=== PATIENT | male | born 1980 | race Caucasian/White ===

== ENCOUNTER 2018-09-02 13:44 | Inpatient (IN) | payer MEDICAID, OTHER ==
[~2018-09-02] VITALS: Ht 170.2 cm; Wt 135.6 kg
--- NOTE | 2018-09-02 13:56 | NUR ---
PT AMBULATES TO BED 5
[2018-09-02 14:04] VITALS: BP 167/100
--- NOTE | 2018-09-02 14:16 | NUR ---
38/M BIB C/O LEFT CHEST PAIN SINCE LAST NIGHT. PT STATES HE HAS PRESSURE PAIN ON CHEST SOB AND COUGH. PMH: COPD, ASTHMA. RX: VENTALIN, STILOTO RESPIMAT . PATIENT STATES PAIN OF 06/02 AT THIS TIME. PATIENT POSITIONED FOR COMFORT; HOB ELEVATED; BEDRAILS UP X2; BED DOWN. ER MADE AWARE OF PT STATUS. Addendum: 09/02/18 at 1802 by [email or web address] HX : COPD MED: VENTOLIN, STIOLTO RESPIMAT
--- NOTE | 2018-09-02 14:59 | NUR ---
X RAY AT BEDSIDE.
[2018-09-02] MEDS ORDERED: ACETAMINOPHEN 325 MG TAB PO ONE (15:05)
[2018-09-02 15:59] LABS: PROTHROMBIN TIME 10.2 secs (10.8-13.4)
[2018-09-02] MEDS ORDERED: NACL 0.9% 1,000 ML IV ONE (16:10)
[2018-09-02] MEDS ORDERED: ALBUTEROL SULFATE/IPRATROPIU 3 ML SOL IH ONE (16:10)
--- NOTE | 2018-09-02 16:20 | NUR ---
RT AT BEDSIDE FOR BREATHING TREATMENT
[2018-09-02 16:53] LABS: BASOPHILS % (AUTO) 0.3 % (0.0-2.0); EOSINOPHILS # (AUTO) 0.2 K/uL (0-0.4); EOSINOPHILS % (AUTO) 2.2 % (0.0-4.0); HEMATOCRIT 48.8 % (36-52); HEMOGLOBIN 15.3 g/dL (12.0-18.0); LYMPHOCYTES # (AUTO) 0.9 K/uL (2.0-11.5); LYMPHOCYTES % (AUTO) 10.3 % (20.5-51.1); MEAN CORPUSCULAR HEMOGLOBIN 27 pg (27-31); MEAN CORPUSCULAR HGB CONC 31 g/dL (33-37); MONOCYTES # (AUTO) 1.1 K/uL (0.8-1.0); MONOCYTES % (AUTO) 12.4 % (1.7-9.3); NEUTROPHILS # (AUTO) 6.9 K/uL (1.8-7.7); NEUTROPHILS % (AUTO) 74.8 % (42.2-75.2); PLATELET COUNT (AUTO) 208 K/uL (140-450); RED BLOOD CELL COUNT(AUTO) 5.74 MIL/uL (4.20-6.10); RED CELL DISTRIBUTION WIDTH 15.3 % (11.6-13.7); WHITE BLOOD COUNT (AUTO) 9.2 K/uL (4.8-10.8)
[2018-09-02 16:54] LABS: ANION GAP 9.4 (8-16); CREATININE 0.9 mg/dL (0.7-1.3); POTASSIUM 4.4 mmol/L (3.5-5.1)
[2018-09-02 17:00] LABS: ALBUMIN 3.5 g/dL (3.4-5.0); TOTAL BILIRUBIN 0.4 mg/dL (0.0-1.0)
[2018-09-02] MEDS ORDERED: MORPHINE SULFATE 4 MG/ML SYR IVP ONE (17:10)
[2018-09-02] MEDS ORDERED: ASPIRIN 325 MG TAB PO ONE (17:30)
[2018-09-02] MEDS: methylPREDNISolone SS 125 MG/2 ML VIAL IVP ONE ×2 (17:42→17:47)
[2018-09-02] MEDS ORDERED: DOCUSATE SODIUM 100 MG GELCAP PO PRN (17:50)
[2018-09-02] MEDS ORDERED: ONDANSETRON 4 MG/2 ML VIAL IM/IVP PRN (17:50)
[2018-09-02] MEDS ORDERED: ACETAMINOPHEN 325 MG TAB PO PRN (17:50)
[2018-09-02] MEDS ORDERED: ALBUTEROL SULFATE/IPRATROPIU 3 ML SOL IH PRN (17:55)
[2018-09-02] MEDS ORDERED: ALBU0.0912 IH (18:20)
[2018-09-02] MEDS ORDERED: TIOT4MIS2 IH (18:22)
--- NOTE | 2018-09-02 18:34 | NUR ---
Patient will be admitted to care of DR TORRES. Admited to TELE. Will go to room 119A. Belongings list completed. Report to ASHLEY RUTH.
--- NOTE | 2018-09-02 18:35 | NUR ---
PT TAKEN TO TELE FLOOR BY FLORY JEWELL AND EMT BIRD
[2018-09-02 18:44] LABS: MAGNESIUM 1.8 mg/dL (1.8-2.4); PHOSPHORUS 2.3 mg/dL (2.5-4.9); THYROID STIMULATING HORMONE 0.98 uIU/mL (0.34-3.74)
--- NOTE | 2018-09-02 19:00 | NUR ---
RECEIVED REPORT FROM DAY SHIFT NURSE ASHLEY-RN AT BEDSIDE. PT RESTING IN BED, AOX4, ON 2L/NC, WITH LEFT HAND #[id number]. DISCUSSED PLAN OF CARE AND PT VERBALIZED UNDERSTANDING. MRSA SWAB COLLECTED AND URINE COLLECTED. NO S/S OF RESPIRATORY DISTRESS OR DISCOMFORT NOTED AT THIS TIME. BED IN LOWEST POSITION, BED BREAKS ON, BOTH SIDE RAILS UP. BEDSIDE TABLE AND CALL LIGHT ARE WITHIN REACH. WILL CONTINUE TO MONITOR.
[2018-09-02 20:00] VITALS: BP_SYST 141; BP_SYST 147; BP_DIAS 87; BP_DIAS 91
[2018-09-02] MEDS ORDERED: guaiFENesin DM 200/20 MG-10 ML 10 ML UDC PO PRN ×2 (20:00→20:30)
--- NOTE | 2018-09-02 20:00 | NUR ---
VITAL SIGNS TAKEN AND TOLERATED WELL. NO S/S OF RESPIRATORY DISTRESS OR DISCOMFORT NOTED AT THIS TIME. WILL CONTINUE TO MONITOR.
[2018-09-02] MEDS: guaiFENesin DM 200/20 MG-10 ML 10 ML UDC PO SCH ×2 (20:59→21:00)
--- NOTE | 2018-09-02 20:59 | NUR ---
PT C/O COUGH WANTING MEDICINE. SPOKE WITH DR. POPE AND HE PLACED ORDER FOR ROBITUSSIN. MEDICINE WAS ADMINISTERED AND TOLERATED WELL. NO S/S OF RESPIRATORY DISTRESS OR DISCOMFORT NOTED AT THIS TIME. WILL CONTINUE TO MONITOR.
--- NOTE | 2018-09-02 21:00 | NUR ---
SPOKE WITH DR. POPE ABOUT SECOND SCHEDULED DOSE OF ROBITUSSIN SCHEDULED 30 MINUTES AFTER FIRST DOSE. DR. POPE INSTRUCTED NOT TO GIVE SCHEDULED DOSE FOR 2100.
[2018-09-02] MEDS ORDERED: SODIUM PHOS / POTASSIUM PHOS 1 PKT PDR PO SCH (21:15)
[2018-09-02] MEDS ORDERED: LISINOPRIL 10 MG TAB ONE (21:58)
[2018-09-02] MEDS: NACL 0.9% 1,000 ML IV SCH (21:58)
[2018-09-02] MEDS: LISINOPRIL 5 MG TAB PO SCH (22:03)
--- NOTE | 2018-09-02 22:03 | NUR ---
SCHEDULED MEDICATION GIVEN. ZESTRIL 10MG WAS TAKEN OUT OF [facility]IXIS BY OVERRIDE BECAUSE I WAS UNABLE TO TAKE OUT SCHEDULED 5MG. SPOKE WITH CHARGE NURSE TERRY AND WAS TOLD TO CALL PHARMACY. PHARMACY SAID THEY ALSO HAD THIS PROBLEM EARLIER AND TRIED TO FIX PROBLEM HOWEVER PROBLEM PERSISTS. ALTHOUGH 10MG WAS TAKEN OUT OF PIXIS VIA OVERRIDE, ONLY 5MG WAS GIVEN. CHARGE NURSE TERRY AWARE. NEUTRA-PHOS WAS GIVEN FOR LOW PHOSPHORUS 2.3 LEVELS. IVF STARTED AND TOLERATED WELL. NO S/S OF RESPIRATORY DISTRESS OR DISCOMFORT NOTED AT THIS TIME. WILL CONTINUE TO MONITOR.
[2018-09-02 23:59] LABS: BARBITURATE, URINE NEGATIVE ng/ml (NEG <=200); BENZODIAZEPINE, URINE NEGATIVE ng/mL (NEG <=200); CANNABINOID, URINE NEGATIVE ng/mL (NEG <=50); COCAINE, URINE NEGATIVE ng/mL (NEG <=300); OPIATE, URINE NEGATIVE ng/mL (NEG <=2000); PHENCYCLIDINE SCREEN,URINE NEGATIVE ng/mL (NEG <=25)
[2018-09-03] VITALS: BP 151/98
--- NOTE | 2018-09-03 | NUR ---
VITAL SIGNS TAKEN AND TOLERATED WELL. NO S/S OF RESPIRATORY DISTRESS OR DISCOMFORT NOTED AT THIS TIME. WILL CONTINUE TO MONITOR.
[2018-09-03 01:03] LABS: APPEARANCE,URINE SL CLOUDY (CLEAR); BILIRUBIN,URINE NEGATIVE (NEGATIVE); BLOOD, URINE NEGATIVE (NEGATIVE); COLOR,URINE YELLOW (YELLOW); LEUKOCYTE ESTERASE ,URINE NEGATIVE (NEGATIVE); NITRITE, URINE NEGATIVE (NEGATIVE); UGLUCOSE 1+ (NEGATIVE)
[2018-09-03 01:04] LABS: RBC,URINE NONE SEEN /HPF (0-5); WBC,URINE NONE SEEN /HPF (0-5)
--- NOTE | 2018-09-03 02:00 | NUR ---
PT CONTINUES TO REST IN BED. NO S/S OF RESPIRATORY DISTRESS OR DISCOMFORT NOTED AT THIS TIME. WILL CONTINUE TO MONITOR.
[2018-09-03] MEDS ORDERED: PNEUMOCOCCAL VACCINE 23 MCG/0.5 ML VIAL IMVAC SCH (03:20)
[2018-09-03 04:00] VITALS: BP 145/92
--- NOTE | 2018-09-03 04:00 | NUR ---
VITAL SIGNS TAKEN AND TOLERATED WELL. NO S/S OF RESPIRATORY DISTRESS OR DISCOMFORT NOTED AT THIS TIME. WILL CONTINUE TO MONITOR.
--- NOTE | 2018-09-03 06:00 | NUR ---
PT CONTINUES TO SLEEP IN BED. NO S/S OF RESPIRATORY DISTRESS OR DISCOMFORT NOTED AT THIS TIME. WILL CONTINUE TO MONITOR.
--- NOTE | 2018-09-03 07:19 | NUR ---
ENDORSED PT CARE TO DAY SHIFT NURSE AMINATA AND ORVILLE Lynch RN FOR CONTINUITY OF CARE.
--- NOTE | 2018-09-03 07:20 | NUR ---
REPORT RECIEVED FROM INDUSTRIAL TECHNOLOGY EDUCATION TEACHER NURSE, PT AWAKE ALERT, RESP EVEN SLIGHTLY LABORED WITH EXCEPTION, REPOSITIONED HIMSELF FOR COMFORT, PLAN OF CARE REVIEWED, ALL SAFETY MEASURES IN PLACE, WILL CONTINUE TO MONITOR.
[2018-09-03 08:00] VITALS: BP 123/76
[2018-09-03] MEDS: guaiFENesin DM 200/20 MG-10 ML 10 ML UDC PO SCH ×2 (08:39→17:39)
[2018-09-03] MEDS: methylPREDNISolone SS 40 MG/ML VIAL IVP SCH (08:39)
--- NOTE | 2018-09-03 08:42 | NUR ---
PATIENT HAS BEEN SCREENED AND CATEGORIZED HIGH NUTRITION RISK. PATIENT WILL BE SEEN WITHIN 1-2 DAYS OF ADMISSION. 09/03/18-09/04/[address]
--- NOTE | 2018-09-03 08:46 | NUR ---
AM MEDS GIVEN PT CONY WELL, PT WITH FREQ COUGHS, PT REQUESTS COUGH MED, MEDICATED AT THIS TIME.
[2018-09-03] MEDS ORDERED: LISINOPRIL 5 MG TAB PO SCH (09:00)
[2018-09-03] MEDS ORDERED: methylPREDNISolone SS 125 MG/2 ML VIAL IVP SCH (09:00)
[2018-09-03] MEDS: LISINOPRIL 5 MG TAB PO SCH (09:00)
[2018-09-03] MEDS ORDERED: METOPROLOL 25 MG TAB PO SCH (09:00)
[2018-09-03] MEDS ORDERED: ECOTRIN 81 MG TABEC PO SCH (09:00)
[2018-09-03] MEDS ORDERED: ATORVASTATIN 20 MG TAB PO SCH (09:00)
[2018-09-03 12:00] VITALS: BP 133/95
--- NOTE | 2018-09-03 12:22 | NUR ---
CALLED DR RALEIGH URIOSTEGUI [phone] PER [address] TRISHA JERRY MD OUT OF AREA CONVEYED TO DR MONZON THAT CARDIOPULMONARY DOES NOT CONDUCT PATIENT WALKS FOR HOME OXYGEN DUE TO NON POLICY AND PROCEDURE CURRENT ORDER TO CARDIOPULMONARY NEEDS TO CANCELLED AND REDIRECTED TO PHYSICAL THERAPY
--- NOTE | 2018-09-03 12:36 | NUR ---
PT COMPLAINED OF 6/10 HEADACHE. ADMINISTERED PRN TYLENOL PER MD ORDER. PT TOLERATED WELL. AT THE BEDSIDE. WILL CONTINUE TO MONITOR.
[2018-09-03] MEDS: NACL 0.9% 1,000 ML IV SCH (13:01)
--- NOTE | 2018-09-03 14:50 | NUR ---
ULTRASOUND AND AT THE BEDSIDE. PICKER PACKER BATTERIES CHANGED. PT AWAKE, ALERT, AND STABLE. WILL CONTINUE TO MONITOR.
--- NOTE | 2018-09-03 14:57 | NUR ---
09/03/18 RD INITIAL ASSESSMENT COMPLETED PLEASE REFER TO NUTRITION ASSESSMENT UNDER CARE ACTIVITY FOR ESTIMATED NUTRITIONAL NEEDS. 1. CONTINUE CARDIAC DIET TOLERATED 2. RD PROVIDED NUTRITION EDUCATION ON A HEART HEALTHY DIET AND LABEL READING 3. RD TO FOLLOW-UP 3-5 DAYS, MODERATE RISK DAT ELLIS, RD
[2018-09-03 16:00] VITALS: BP 127/95
--- NOTE | 2018-09-03 17:39 | NUR ---
ADMINISTERED SCHEDULED MEDICATION. PT TOLERATED WELL. AT THE BEDSIDE.
--- NOTE | 2018-09-03 19:22 | NUR ---
REPORT GIVEN TO PURCHASING MANAGER NURSE, PT IN STABLE CONDITION
--- NOTE | 2018-09-03 19:23 | NUR ---
RECEIVED REPORT FROM DAY SHIFT NURSE AMINATA AND CHERN AT BEDSIDE. PT RESTING IN BED, AOX4, ON 2L/NC, WITH LEFT HAND #[id number]. DISCUSSED PLAN OF CARE AND PT VERBALIZED UNDERSTANDING. NO S/S OF RESPIRATORY DISTRESS OR DISCOMFORT NOTED AT THIS TIME. BED IN LOWEST POSITION, BED BREAKS ON, BOTH SIDE RAILS UP. BEDSIDE TABLE AND CALL LIGHT ARE WITHIN REACH. WILL CONTINUE TO MONITOR.
[2018-09-03 20:00] VITALS: BP 133/72
--- NOTE | 2018-09-03 20:00 | NUR ---
VITAL SIGNS TAKEN AND TOLERATED WELL. NO S/S OF RESPIRATORY DISTRESS OR DISCOMFORT NOTED AT THIS TIME. PT REQUESTED TO NOT HAVE BIPAP TONIGHT. WILL CALL RT. WILL CONTINUE TO MONITOR.
--- NOTE | 2018-09-03 22:00 | NUR ---
PT CONTINUES TO REST IN BED. NO S/S OF RESPIRATORY DISTRESS OR DISCOMFORT NOTED AT THIS TIME. WILL CONTINUE TO MONITOR.
[2018-09-04] VITALS: BP 123/78
--- NOTE | 2018-09-04 | NUR ---
VITAL SIGNS TAKEN AND TOLERATED WELL. NO S/S OF RESPIRATORY DISTRESS OR DISCOMFORT NOTED AT THIS TIME. WILL CONTINUE TO MONITOR.
[2018-09-04] MEDS: guaiFENesin DM 200/20 MG-10 ML 10 ML UDC PO SCH ×3 (00:17→12:17)
--- NOTE | 2018-09-04 00:17 | NUR ---
SCHEDULED MEDICATION ROBITUSSIN GIVEN AND TOLERATED WELL. PT ALSO REQUESTING BIPAP MACHINE. NO S/S OF RESPIRATORY DISTRESS OR DISCOMFORT NOTED AT THIS TIME. WILL CONTINUE TO MONITOR.
--- NOTE | 2018-09-04 00:33 | NUR ---
PT REUSED TO WEAR BIPAP- UNCOMFORTABLE. EXPLAINED CPAP MODE AND PT NOW FINDS IT MORE COMFORTABLE. CPAP 5, 32%. SAO2 98%. NO SOB OR DISTRESS.
--- NOTE | 2018-09-04 01:39 | NUR ---
PT ON CPAP MODE. INCREASED PRESSURE TO 7. PT HAS PERIODS OF APNEA
--- NOTE | 2018-09-04 02:00 | NUR ---
PT SLEEPING IN BED. NO S/S OF RESPIRATORY DISTRESS OR DISCOMFORT NOTED AT THIS TIME. WILL CONTINUE TO MONITOR.
[2018-09-04 04:00] VITALS: BP 151/101
--- NOTE | 2018-09-04 04:00 | NUR ---
PT RESTING IN BED. PT TOOK OFF BIPAP. NO S/S OF RESPIRATORY DISTRESS OR DISCOMFORT NOTED AT THIS TIME. WILL CONTINUE TO MONITOR.
--- NOTE | 2018-09-04 05:40 | NUR ---
SCHEDULED MEDICATION GIVEN AND TOLERATED WELL. NO S/S OF RESPIRATORY DISTRESS OR DISCOMFORT NOTED AT THIS TIME. WILL CONTINUE TO MONITOR.
[2018-09-04] MEDS: NACL 0.9% 1,000 ML IV SCH (05:44)
--- NOTE | 2018-09-04 07:23 | NUR ---
RECEIVED BEDSIDE REPORT FROM FLORY COELLO. PT STABLE, SLEEPING COMFORTABLY WITHOUT BIPAP BUT EASILY AROUSABLE. NO SIGNS OF DISTRESS NOTED. SAFETY MEASURES IN PLACE. PLAN OF CARE REVIEWED. WILL CONTINUE TO MONITOR.
--- NOTE | 2018-09-04 07:24 | NUR ---
ENDORSED PT CARE TO DAY SHIFT NURSE AMINATA-RN FOR CONTINUITY OF CARE.
[2018-09-04 07:55] VITALS: BP 119/77
[2018-09-04] MEDS ORDERED: methylPREDNISolone SS 40 MG/ML VIAL IVP SCH (09:00)
--- NOTE | 2018-09-04 09:00 | NUR ---
PT AMBULATED WITH PT.
[2018-09-04] MEDS: methylPREDNISolone SS 40 MG/ML VIAL IVP SCH (09:04)
--- NOTE | 2018-09-04 09:12 | NUR ---
RT AT THE BEDSIDE. ABG BLOOD DRAW.
--- NOTE | 2018-09-04 09:57 | NUR ---
SPOKE TO NM SHERLY TO ARRANGE HOME OXYGEN, WAS ADVICED TO CALL [facility] AT [phone] AND CALLED AND SPOKE TO EMMIE. I WAS ADVICED TO CALL THE [facility] WHO IS CONTRACTED WITH [facility] AT [phone]. called the number and was placed on hold.
--- NOTE | 2018-09-04 09:58 | NUR ---
Fani to call back and give Auth. for home O2.
[2018-09-04 12:00] VITALS: BP 130/71
--- NOTE | 2018-09-04 12:00 | NUR ---
PT STABLE, AWAKE, AND ALERT. AT THE BEDSIDE. VS TAKEN, WNL. NO SIGNS OF DISTRESS NOTED. NO OTHER NEEDS AT THIS TIME.
[2018-09-04] MEDS ORDERED: SODIUM PHOS / POTASSIUM PHOS 1 PKT PDR PO SCH (13:00)
[2018-09-04] MEDS ORDERED: ALBU0.0912 IH (13:10)
[2018-09-04] MEDS ORDERED: METF500T PO (13:10)
--- NOTE | 2018-09-04 13:18 | NUR ---
Fani called earlier and requested the rate of home O2 and spoke to the resident Dr. Garcia and home O2 at 3 liters, new order faxed to Fani at [facility] and she receive it. Awaiting for call back. [place] [facility] called Fani and left a message for follow up.
--- NOTE | 2018-09-04 14:30 | NUR ---
AWAITING OXYGEN TANK DELIVERY FOR DISCHARGE. PT AND MADE AWARE.
[2018-09-04 16:00] VITALS: BP 133/83
[2018-09-04] MEDS ORDERED: metFORMIN 500 MG TAB PO SCH (17:00)
--- NOTE | 2018-09-04 18:35 | NUR ---
DISCHARGE INSTRUCTIONS GIVEN TO PATIENT AND . PT AND VERBALIZED UNDERSTANDING. DISCONTINUED IV X2, CATHETER INTACT. BLEEDING CONTROLLED. NOTIFIED DR MONZON TO CHANGED PHARMACY TO [facility] IN [place]. QUESTIONS ASKED AND ANSWERED. DR MONZON AT THE BEDSIDE TO REVIEW DISCHARGE INSTRUCTIONS. PT INSTRUCTED ON USE OF PORTABLE 02 TANK. PT AND VERBALIZED UNDERSTANDING OF INSTRUCTIONS. ESCORTED PT TO THE LOBBY BY WHEELCHAIR.
[2018-09-05] MEDS ORDERED: SODIUM PHOS / POTASSIUM PHOS 1 PKT PDR PO SCH (09:00)
== END 2018-09-04 18:35 | disposition home or self-care (01) | DRG 140 ==
LOC: MED 13:44 → MTU 17:46
PROVIDERS: ADMIT General Practice; ATTEND General Practice
DX: J44.1 Chronic obstructive pulmonary disease with (acute) exacerbation (principal); J96.22 Acute and chronic respiratory failure with hypercapnia; E43 Unspecified severe protein-calorie malnutrition; J45.901 Unspecified asthma with (acute) exacerbation; E83.39 Other disorders of phosphorus metabolism; E66.2 Morbid (severe) obesity with alveolar hypoventilation; Z68.42 Body mass index [BMI] 45.0-49.9, adult; M94.0 Chondrocostal junction syndrome [Tietze]; G47.00 Insomnia, unspecified; E78.5 Hyperlipidemia, unspecified; E11.9 Type 2 diabetes mellitus without complications; M77.8 Other enthesopathies, not elsewhere classified; Z87.891 Personal history of nicotine dependence
CPT/HCPCS: 36415; 36600; 71045; 76700; 80053; 80305; 81001; 82803; 83036; 83605; 83690; 83735; 83880; 84100; 84134; 84443; 84484; 85025; 85610; 85730; 87040; 87081; 87804; 90732; 93005; 93970; 94640; 94660; 96361; 96374; 96375; 99285; J2270; J2920; J2930; J7030; J7620; Q0092